=== PATIENT | male | born 1960 | race Caucasian/White ===

== ENCOUNTER → 2019-09-13 | Outpatient (CLI) | payer BC ==
[~2019-09-13] MED LIST: LEVSOD50 PO; LIOT5 PO; NAPR500EC PO; PSEU120ER PO; TADA10TA PO
[2019-09-13 11:54] LABS: BASOPHILS ABSOLUTE AUTO 0.09 K/mm3 (0.00-0.23); BASOPHILS PERCENT AUTO 1 % (0-2); EOSINOPHILS ABSOLUTE AUTO 0.31 K/mm3 (0.00-0.68); EOSINOPHILS PERCENT AUTO 3 % (0-6); Hemoglobin 15.4 g/dL (13.5-17.5); IMMATURE GRAN ABSOLUTE AUTO 0.05 K/mm3 (0.00-0.10); IMMATURE GRAN PERCENT AUTO 1 % (0-1); LYMPHOCYTES ABSOLUTE AUTO 3.11 K/mm3 (0.84-5.20); LYMPHOCYTES PERCENT AUTO 30 % (21-46); MONOCYTES ABSOLUTE AUTO 0.87 K/mm3 (0.16-1.47); MONOCYTES PERCENT AUTO 8 % (4-13); Mean Corpuscular HGB 31.9 pg (26.0-34.0); Mean Corpuscular HGB Conc 34.2 g/dL (31.5-36.5); Mean Corpuscular Volume 93 fL (80-100); Mean Platelet Volume 12.3 fL (9.1-12.4); NEUTROPHILS ABSOLUTE AUTO 6.13 K/mm3 (1.96-9.15); NEUTROPHILS PERCENT AUTO 58 % (41-73); Platelet Count 153 K/mm3 (150-400); RDW Coefficient Variation 12.9 % (11.7-14.2); Red Blood Cell Count 4.83 M/mm3 (4.30-5.90); White Blood Cell Count 10.56 K/mm3 (4.00-11.30)
[2019-09-13 12:11] LABS: Alanine Aminotransfer (ALT/SGP 116 U/L (12-78); Albumin, Blood 4.2 g/dL (3.4-5.0); Alk Phos 168 U/L (50-136); Anion Gap 4 mmol/L (6-16); Aspartate Aminotrans (AST/SGOT 55 U/L (12-37); Bilirubin, Total 0.8 mg/dL (0.1-1.0); Blood Urea Nitrogen 15 mg/dL (8-24); Bun/Creatinine Ratio 15.1 (12.0-20.0); CO2, Blood 28 mmol/L (21-32); Calcium, Blood 9.1 mg/dL (8.5-10.1); Chloride, Blood 104 mmol/L (98-108); Creatinine, Blood 0.99 mg/dL (0.60-1.20); Globulin, Blood 4.1 g/dL (2.2-4.0); Glomerular Filtration Rate >60 (60-); Glucose, Blood 129 mg/dL (70-99); Sodium, Blood 136 mmol/L (136-145); Total Protein, Blood 8.3 g/dL (6.4-8.2)
== END | disposition home or self-care (01) ==
LOC: LAB 11:15 → LAB SHORT 11:15
PROVIDERS: Emergency Medicine
DX: R10.84 Generalized abdominal pain (principal)
CPT/HCPCS: 80053; 85025

== ENCOUNTER → 2023-04-19 | Outpatient (CLI) | payer BC ==
[2023-04-23 11:09] LABS: Stool Occult Bld Immuno 1 Negative (NEGATIVE)
== END ==
LOC: LAB SHORT 08:45 → LAB 08:45
PROVIDERS: Family Medicine
DX: D64.9 Anemia, unspecified (principal)
CPT/HCPCS: 82274

== ENCOUNTER 2023-05-07 09:47 | Day surgery (SDC) | payer BC ==
[~2023-05-07] VITALS: Ht 185.4 cm; Wt 104.0 kg
[2023-05-07] MEDS ORDERED: ATOR10 (10:09)
[2023-05-07] MEDS ORDERED: ASPI81CH (10:09)
[2023-05-07] MEDS ORDERED: METFORMIN ER G500 MG (10:09)
[2023-05-07 12:17] VITALS: BP 141/71
== END 2023-05-07 12:35 | disposition home or self-care (01) ==
LOC: ORSCSDS 09:47
PROVIDERS: Surgery
PROC: 0DBL8ZX Excision of Transverse Colon, Via Natural or Artificial Opening Endoscopic, Diagnostic (ICD-10-PCS; principal; 2023-05-07 10:30)
PROC: 0DBH8ZX Excision of Cecum, Via Natural or Artificial Opening Endoscopic, Diagnostic (ICD-10-PCS; principal; 2023-05-07 10:30)
PROC: 0DBK8ZX Excision of Ascending Colon, Via Natural or Artificial Opening Endoscopic, Diagnostic (ICD-10-PCS; principal; 2023-05-07 10:30)
PROC: 0DBM8ZX Excision of Descending Colon, Via Natural or Artificial Opening Endoscopic, Diagnostic (ICD-10-PCS; principal; 2023-05-07 10:30)
DX: Z12.11 Encounter for screening for malignant neoplasm of colon (principal); Z86.010 Personal history of colon polyps; D12.3 Benign neoplasm of transverse colon; D12.0 Benign neoplasm of cecum; D12.2 Benign neoplasm of ascending colon; K63.5 Polyp of colon; F17.210 Nicotine dependence, cigarettes, uncomplicated; E11.9 Type 2 diabetes mellitus without complications; Z79.84 Long term (current) use of oral hypoglycemic drugs; Z79.899 Other long term (current) drug therapy; Z79.82 Long term (current) use of aspirin
CPT/HCPCS: 82947; 88305; J2405; J2704; J7120

== ENCOUNTER 2023-07-30 07:14 | Day surgery (SDC) | payer BC ==
[~2023-07-30] VITALS: Ht 185.4 cm; Wt 108.0 kg
[2023-07-30] VITALS (10 sets, daily range): BP systolic 117–153; BP diastolic 59–94
[~2023-07-30 07:14] MED LIST changes: +ASPI81CH PO; +ATOR10; +Klor-Con-Ef 2525 MEQ PO; +MELO7.5 PO; +METFORMIN ER G500 MG PO; +REVATIO20 MG PO; +Vitamin D1000 UNI1 PO; +XALATAN2.5 ML BOTHEYES; +ZINC15 PO
[2023-07-30] MEDS ORDERED: ATORVASTATIN CA80 M1 PO (07:41)
[2023-07-30] MEDS ORDERED: Klor-Con-Ef 2525 MEQ PO (07:47)
[2023-07-30] MEDS ORDERED: LEVOTHYROXINE100 M10 PO (07:47)
[2023-07-30] MEDS ORDERED: MULVITA PO (07:48)
[2023-07-30] MEDS ORDERED: ASPI325 PO (07:49)
--- NOTE | 2023-07-30 10:20 | NUR ---
ASSUMED CARE OF PT POST PROCEDURE. PT DROWSY, BUT CONVERSING APPROPRIATELY; DENIES PAIN POST PROCEDURE. MONITOR SR 70'S, B/P 135/73, SPO2 97% RA, AFEBRILE. R GROIN NO SWELLING/HEMATOMA, TEGADERM DRSG INTACT; ANGIO SEAL DEPLOYED, DOPPLER PULSES X 2. L FOOT ACCESS SITE NO SWELLING/HEMATOMA, JUDY AND TEGADERM DRSG INTACT.
--- NOTE | 2023-07-30 11:35 | NUR ---
PT'S HOB ELEVATED, SITE UNCHANGED; EATING LUNCH WITHOUT ISSUE.
--- NOTE | 2023-07-30 13:20 | NUR ---
PT AMB TO BATHROOM, GAIT STEADY, SITES UNCHANGED. PT DRESSED SELF WITHOUT ISSUE, SITES UNCHANGED; IV REMOVED-CANNULA INTACT.
--- NOTE | 2023-07-30 13:29 | NUR ---
PT AND RECEIVED DISCHARGE INSTRUCTIONS, MED LIST AND AFTER CARE INSTRUCTIONS; VERBALIZED GOOD UNDERSTANDING. PT LEFT FACILITY VIA W/C, CONDITION STABLE.
== END 2023-07-30 13:29 | disposition home or self-care (01) ==
LOC: MHTC 07:14
DX: E11.51 Type 2 diabetes mellitus with diabetic peripheral angiopathy without gangrene (principal); I70.222 Atherosclerosis of native arteries of extremities with rest pain, left leg; E03.9 Hypothyroidism, unspecified; E11.9 Type 2 diabetes mellitus without complications; Z87.891 Personal history of nicotine dependence; Z79.82 Long term (current) use of aspirin; Z79.899 Other long term (current) drug therapy
CPT/HCPCS: 75625; 75716; 75774; 76937; 99152; 99153; C1725; C1760; C1769; C1887; C1894; C9764; J1644; J2250; J3010; J7030; J7050; Q9967

== ENCOUNTER 2024-06-09 07:37 | Emergency (ER) | payer BC ==
[~2024-06-09] VITALS: Ht 185.4 cm; Wt 99.8 kg
[~2024-06-09 07:37] MED LIST changes: +ASPI325 PO; +ATORVASTATIN CA80 M1 PO; +LEVOTHYROXINE100 M10 PO; +MULVITA PO
[2024-06-09] MEDS ORDERED: ROSUVASTATIN CA40 MG PO (08:03)
[2024-06-09] MEDS ORDERED: Synthroid/Levo0.2 MG PO (08:03)
[2024-06-09] MEDS ORDERED: CILO100 PO (08:03)
[2024-06-09 08:42] LABS: BASOPHILS ABSOLUTE AUTO 0.08 K/mm3 (0.00-0.23); BASOPHILS PERCENT AUTO 1 % (0-2); EOSINOPHILS ABSOLUTE AUTO 0.32 K/mm3 (0.00-0.68); EOSINOPHILS PERCENT AUTO 5 % (0-6); Hematocrit 22.7 % (37.0-53.0); IMMATURE GRAN ABSOLUTE AUTO 0.02 K/mm3 (0.00-0.10); IMMATURE GRAN PERCENT AUTO 0 % (0-1); LYMPHOCYTES ABSOLUTE AUTO 1.39 K/mm3 (0.84-5.20); LYMPHOCYTES PERCENT AUTO 21 % (21-46); MONOCYTES ABSOLUTE AUTO 0.68 K/mm3 (0.16-1.47); MONOCYTES PERCENT AUTO 10 % (4-13); Mean Corpuscular HGB 14.6 pg (26.0-34.0); Mean Corpuscular HGB Conc 24.7 g/dL (31.5-36.5); Mean Corpuscular Volume 59 fL (80-100); NEUTROPHILS PERCENT AUTO 62 % (41-73); RDW Coefficient Variation 22.4 % (11.7-14.2); RDW Standard Deviation 45.3 fL (35.1-46.3); Red Blood Cell Count 3.84 M/mm3 (4.30-5.90); White Blood Cell Count 6.59 K/mm3 (4.00-11.30)
[2024-06-09 08:52] LABS: Platelet Count 146 K/mm3 (150-400)
[2024-06-09 08:55] LABS: Hemoglobin 5.6 g/dL (13.5-17.5)
[2024-06-09 08:57] LABS: Albumin, Blood 3.6 g/dL (3.4-5.0); Albumin/Globulin Ratio 0.9 (0.8-1.8); Bilirubin, Total 0.6 mg/dL (0.1-1.0); Bun/Creatinine Ratio 11.9 (12.0-20.0); Creatinine, Blood 0.84 mg/dL (0.60-1.20); Globulin, Blood 3.8 g/dL (2.2-4.0); Potassium, Blood 3.8 mmol/L (3.5-5.5); Total Protein, Blood 7.4 g/dL (6.4-8.2)
[2024-06-09 09:29] LABS: International Normalized Ratio 1.11; Prothrombin Time Results 11.8 Sec (9.7-11.5)
[2024-06-09 09:32] LABS: Percent Saturation 2.2 % (20.0-50.0)
[2024-06-09 09:34] LABS: Free Thyroxine 0.69 ng/dL (0.70-1.60)
[2024-06-09 09:36] LABS: Triiodothyronine, Free 1.22 pg/mL (2.18-3.98)
[2024-06-09] MEDS ORDERED: Sod Ferric Gluc Complx/Sucrose 125 MG in NS 100 ML IV ONE (10:50)
[2024-06-09] MEDS ORDERED: NS 1,000 ML IV SCH (11:00)
[2024-06-09 15:35] VITALS: BP 135/64
[2024-06-09 16:59] LABS: Hematocrit 27.8 % (37.0-53.0); Hemoglobin 7.3 g/dL (13.5-17.5)
== END 2024-06-09 18:10 | disposition home or self-care (01) ==
LOC: ER 07:37
PROVIDERS: Physician Assistant
DX: D50.9 Iron deficiency anemia, unspecified (principal); E03.9 Hypothyroidism, unspecified; E11.9 Type 2 diabetes mellitus without complications; F17.200 Nicotine dependence, unspecified, uncomplicated; Z79.84 Long term (current) use of oral hypoglycemic drugs; Z79.899 Other long term (current) drug therapy
CPT/HCPCS: 36430; 74177; 80053; 82272; 82728; 83540; 83550; 84439; 84481; 85014; 85018; 85025; 85610; 85730; 86850; 86900; 86901; 86923; 93005; 93010; 96365-59; 99285-25; J2916; J7030; P9016; Q9967